=== PATIENT | male | born 1985 | race Caucasian/White ===

== ENCOUNTER 2021-06-06 04:07 | Inpatient (IN) ==
[2021-06-06] MEDS ORDERED: 0.9 % Sodium Chloride 1,000 ML IV ONE ×2 (04:17→04:25)
[2021-06-06 04:52] LABS: Basophils # 0.2 K/mcL (0.0-0.2); Basophils % 1.1 %; Hematocrit 46.4 % (37.5-50.1); Hemoglobin 13.9 g/dL (12.9-16.9); Immature Granulocytes % 3.6 % (0-4); Lymphocytes % 12.9 %; Mean Corpuscular Hemoglobin 32.2 pg (28.0-33.3); Mean Corpuscular Volume 107.4 fL (83.0-100.0); Mean Platelet Volume 9.2 fL (9.4-12.4); Monocytes # 1.4 K/mcL (0.0-1.3); Neutrophils # 17.4 K/mcL (1.6-8.9); Platelet Count 488 K/mcL (140-400); Red Blood Count 4.32 M/mcL (4.19-5.50); Red Cell Distribution Width 12.2 % (11.5-14.5); Segmented Neutrophils % 76.4 %; White Blood Count 22.8 K/mcL (4.3-11.1)
[2021-06-06 04:58] LABS: VBG HCO3 4 mEq/L (21-27); VBG PCO2 17 mmHg (41-51); VBG PH 6.93 pH Units (7.32-7.42); VBG PO2 91 mmHg (25-50)
[2021-06-06 05:42] LABS: Alanine Aminotransferase 29 Units/L (7-52); Albumin 3.6 g/dL (3.5-5.7); Alkaline Phosphatase 200 Units/L (34-104); Aspartate Amino Transferase 19 Units/L (13-39); BUN/Creatinine Ratio 29 (6-26); Bilirubin,Total 0.3 mg/dL (0.3-1.0); Blood Urea Nitrogen 54 mg/dL (6-20); Calcium 8.4 mg/dL (8.6-10.3); Carbon Dioxide < 4 mEq/L (23-29); Chloride 72 mEq/L (98-107); Globulin 3.6 g/dL (2.4-3.5); Glucose 1298 mg/dL (70-105); Lipase 74 Units/L (11-82); Osmolality,Calculated 321 (280-300); Sodium 115 mEq/L (136-145); Total Protein 7.2 g/dL (6.4-8.9); eGFR For African Americans 50 (> 60); eGFR For Non-African Americans 41 (> 60)
[2021-06-06] MEDS ORDERED: Insulin Human Regular 10 UNIT in 0.9 % Sodium Chloride 10 ML IV ONE (05:45)
[2021-06-06] MEDS ORDERED: Calcium Gluconate 1,000 MG/10 ML VIAL IVPB ONE (05:47)
[2021-06-06] MEDS ORDERED: Calcium Gluconate 1gm/50mL 1 GM/50 ML BAG IVPB ONE (06:00)
[2021-06-06 06:05] LABS: Bilirubin,Urine Negative (Negative); Blood,Urine Negative (Negative); Clarity,Urine Clear (Clear); Color,Urine Light-Yellow (Yellow); Glucose,Urine (UA) >=1000 mg/dL (Normal); Ketones,Urine 60 mg/dL (Negative); Leukocyte Esterase,Urine Negative (Negative); Mucus,Urine Few per lpf (None-Few); Nitrite,Urine Negative (Negative); PH,Urine 5.5 pH Units (5.0-8.0); Protein,Urine 30 mg/dL (Neg-Trace); RBC,Urine 0-3 per hpf (0-3); Specific Gravity,Urine 1.022 (1.010-1.025); Squamous Epithelial Cell,Urine Few per hpf (None-Few); Urobilinogen,Urine Normal (Normal)
[2021-06-06 06:06] LABS: Influenza A PCR Negative (Negative); Influenza B PCR Negative (Negative); Resp. Syncytial Virus PCR Negative (Negative); SARS-CoV-2 by PCR (In House) Negative (Negative)
[2021-06-06 06:21] LABS: Amphetamine Screen,Urine Negative ng/mL (Cutoff=1000); Barbiturate Screen,Urine Negative ng/mL (Cutoff=200)
[2021-06-06 06:22] LABS: Benzodiazepines Screen,Urine Negative ng/mL (Cutoff=300); Cannabinoid Screen,Urine Negative ng/mL (Cutoff = 50); Cocaine Screen,Urine Negative ng/mL (Cutoff= 300); Opiate Screen,Urine Negative ng/mL (Cutoff=300); Phencyclidine Screen,Urine Negative ng/mL (Cutoff=25)
[2021-06-06] MEDS: 0.9 % Sodium Chloride 1,000 ML IVC SCH ×3 (06:53→10:48)
[2021-06-06] MEDS ORDERED: Vancomycin 1,500 MG/265 ML IV.SOLN IVPB ONE (08:04)
[2021-06-06 09:08] LABS: Albumin 3.5 g/dL (3.5-5.7); Albumin/Globulin Ratio 1.1 (1.1-2.2); Bilirubin,Total 0.3 mg/dL (0.3-1.0); Calcium 8.1 mg/dL (8.6-10.3); Globulin 3.3 g/dL (2.4-3.5); Potassium 5.9 mEq/L (3.5-5.1); Total Protein 6.8 g/dL (6.4-8.9)
[2021-06-06] MEDS ORDERED: Insulin Regular, Human 100 UNIT/ML IV PRN ×2 (09:27)
[2021-06-06] MEDS ORDERED: Ondansetron 4 MG/2 ML VIAL IVP PRN (09:27)
[2021-06-06] MEDS ORDERED: D5% in 0.45% NACL 1,000 ML IVC PRN (09:27)
[2021-06-06] MEDS ORDERED: Naloxone 0.4 MG/ML INJ IVP PRN (09:27)
[2021-06-06] MEDS ORDERED: *HR* Dextrose 50 % in Water (Syg) 50 ML SYRINGE IVP PRN (09:27)
[2021-06-06] MEDS ORDERED: Vancomycin (wt based) 1,000 MG VIAL IVPB SCH (10:00)
[2021-06-06] MEDS: SODIUM ZIRCONIUM CYCLOSILICATE 5 GM POWD.PACK PO SCH (10:44)
[2021-06-06] MEDS: levoFLOXacin 750 MG/150 ML 750 MG/150 ML BAG IVPB SCH (10:55)
[2021-06-06] MEDS: Pantoprazole 40 MG VIAL IVP SCH (10:57)
[2021-06-06] MEDS: *HR* Heparin 5,000 UNIT/ML VIAL SQ SCH ×2 (11:07→18:10)
[2021-06-06 11:29] LABS: Calcium 7.6 mg/dL (8.6-10.3); Potassium 5.6 mEq/L (3.5-5.1)
[2021-06-06] MEDS ORDERED: Perflutren Lipid Microsphere 1.3 ML in 0.9 % Sodium Chloride 8.7 ML IVP PRN (12:28)
[2021-06-06 13:13] LABS: Blood Urea Nitrogen 49 mg/dL (6-20); Calcium 7.4 mg/dL (8.6-10.3); Carbon Dioxide 10 mEq/L (23-29); Chloride 96 mEq/L (98-107); Glucose 635 mg/dL (70-105); Magnesium 2.7 mg/dL (1.6-2.6); Osmolality,Calculated 319 (280-300); Phosphorous 5.2 mg/dL (2.7-4.5); Potassium 4.8 mEq/L (3.5-5.1); Sodium 133 mEq/L (136-145)
[2021-06-06 14:02] LABS: BUN/Creatinine Ratio 32 (6-26); eGFR For African Americans > 60 (> 60); eGFR For Non-African Americans 52 (> 60)
[2021-06-06] MEDS: 0.45 % Sodium Chloride w/KCl 20 MEQ/1,000 ML MLS IVC SCH ×6 (15:26→23:07)
[2021-06-06 15:30] LABS: VBG HCO3 13 mEq/L (21-27); VBG Ionized Calcium 1.02 mmol/L (1.15-1.35); VBG PCO2 28 mmHg (41-51); VBG PH 7.26 pH Units (7.32-7.42); VBG PO2 107 mmHg (25-50)
[2021-06-06 15:48] LABS: BUN/Creatinine Ratio 34 (6-26); Blood Urea Nitrogen 43 mg/dL (6-20); Calcium 7.5 mg/dL (8.6-10.3); Carbon Dioxide 12 mEq/L (23-29); Chloride 102 mEq/L (98-107); Glucose 400 mg/dL (70-105); Magnesium 2.5 mg/dL (1.6-2.6); Osmolality,Calculated 310 (280-300); Phosphorous 3.7 mg/dL (2.7-4.5); Potassium 5.1 mEq/L (3.5-5.1); Sodium 136 mEq/L (136-145); eGFR For African Americans > 60 (> 60); eGFR For Non-African Americans > 60 (> 60)
[2021-06-06] MEDS: Calcium Gluconate 1gm/50mL 1 GM/50 ML BAG IVPB SCH ×2 (17:02→17:36)
[2021-06-06 19:30] LABS: BUN/Creatinine Ratio 32 (6-26); Blood Urea Nitrogen 36 mg/dL (6-20); Calcium 8.1 mg/dL (8.6-10.3); Carbon Dioxide 15 mEq/L (23-29); Chloride 106 mEq/L (98-107); Glucose 196 mg/dL (70-105); Magnesium 2.3 mg/dL (1.6-2.6); Osmolality,Calculated 300 (280-300); Phosphorous 3.4 mg/dL (2.7-4.5); Sodium 138 mEq/L (136-145); eGFR For African Americans > 60 (> 60); eGFR For Non-African Americans > 60 (> 60)
[2021-06-06] MEDS: D5% in 0.45% NACL w KCl 20 MEQ/1,000 ML MLS IVC SCH (21:34)
[2021-06-06 23:26] LABS: BUN/Creatinine Ratio 30 (6-26); Blood Urea Nitrogen 28 mg/dL (6-20); Calcium 7.7 mg/dL (8.6-10.3); Carbon Dioxide 19 mEq/L (23-29); Chloride 108 mEq/L (98-107); Glucose 176 mg/dL (70-105); Osmolality,Calculated 296 (280-300); Potassium 4.7 mEq/L (3.5-5.1); Sodium 138 mEq/L (136-145); eGFR For African Americans > 60 (> 60); eGFR For Non-African Americans > 60 (> 60)
[2021-06-07] MEDS: D5% in 0.45% NACL w KCl 20 MEQ/1,000 ML MLS IVC SCH ×3 (01:45→14:19)
[2021-06-07 03:44] LABS: Basophils % 0.2 %; Eosinophils % 0.1 %; Hematocrit 29.7 % (37.5-50.1); Immature Granulocytes % 0.8 % (0-4); Lymphocytes % 15.4 %; Mean Corpuscular Hemoglobin 32.1 pg (28.0-33.3); Mean Platelet Volume 8.3 fL (9.4-12.4); Monocytes # 1.3 K/mcL (0.0-1.3); Neutrophils # 9.6 K/mcL (1.6-8.9); Platelet Count 250 K/mcL (140-400); Red Blood Count 3.43 M/mcL (4.19-5.50); Red Cell Distribution Width 12.3 % (11.5-14.5); Segmented Neutrophils % 73.5 %
[2021-06-07 03:45] LABS: VBG Ionized Calcium 1.14 mmol/L (1.15-1.35)
[2021-06-07 03:46] LABS: Mean Corpuscular Volume 86.6 fL (83.0-100.0)
[2021-06-07 04:02] LABS: Alanine Aminotransferase 18 Units/L (7-52); Albumin 2.7 g/dL (3.5-5.7); Alkaline Phosphatase 118 Units/L (34-104); Aspartate Amino Transferase 16 Units/L (13-39); BUN/Creatinine Ratio 23 (6-26); Bilirubin,Indirect 0.2 mg/dL (0.0-1.0); Bilirubin,Total 0.2 mg/dL (0.3-1.0); Blood Urea Nitrogen 20 mg/dL (6-20); Calcium 7.6 mg/dL (8.6-10.3); Carbon Dioxide 21 mEq/L (23-29); Chloride 108 mEq/L (98-107); Globulin 2.6 g/dL (2.4-3.5); Glucose 116 mg/dL (70-105); Magnesium 1.9 mg/dL (1.6-2.6); Osmolality,Calculated 292 (280-300); Phosphorous 1.1 mg/dL (2.7-4.5); Potassium 4.1 mEq/L (3.5-5.1); Sodium 139 mEq/L (136-145); Total Protein 5.3 g/dL (6.4-8.9); eGFR For African Americans > 60 (> 60); eGFR For Non-African Americans > 60 (> 60)
[2021-06-07] MEDS: 0.45 % Sodium Chloride w/KCl 20 MEQ/1,000 ML MLS IVC SCH ×4 (04:19→14:19)
[2021-06-07] MEDS ORDERED: Dextrose Gel 15 GM/37.5 ML TUBE PO PRN ×4 (05:29→09:35)
[2021-06-07] MEDS ORDERED: D5% in Water 1,000 ML IVC PRN (05:29)
[2021-06-07] MEDS: *HR* Heparin 5,000 UNIT/ML VIAL SQ SCH ×2 (05:42→17:12)
[2021-06-07] MEDS ORDERED: Insulin DETEMIR 100 UNIT/ML X5UNITS SUBQ SCH ×2 (05:45→21:00)
[2021-06-07] MEDS ORDERED: Insulin LISPRO 300 UNITS/3 ML VIAL SUBQ SCH (07:30)
[2021-06-07] MEDS: levoFLOXacin 750 MG/150 ML 750 MG/150 ML BAG IVPB SCH (08:17)
[2021-06-07] MEDS: Pantoprazole 40 MG VIAL IVP SCH (08:17)
[2021-06-07 08:45] LABS: BUN/Creatinine Ratio 20 (6-26); Blood Urea Nitrogen 16 mg/dL (6-20); Calcium 7.6 mg/dL (8.6-10.3); Carbon Dioxide 20 mEq/L (23-29); Chloride 105 mEq/L (98-107); Glucose 248 mg/dL (70-105); Osmolality,Calculated 289 (280-300); Phosphorous 1.8 mg/dL (2.7-4.5); Potassium 4.4 mEq/L (3.5-5.1); Sodium 135 mEq/L (136-145); eGFR For African Americans > 60 (> 60); eGFR For Non-African Americans > 60 (> 60)
[2021-06-07] MEDS ORDERED: Ondansetron 4 MG/2 ML VIAL IVP PRN (09:35)
[2021-06-07] MEDS ORDERED: *HR* Dextrose 50 % in Water (Syg) 50 ML SYRINGE IVP PRN (09:35)
[2021-06-07] MEDS ORDERED: Naloxone 0.4 MG/ML INJ IVP PRN (09:35)
[2021-06-07] MEDS: Ringers Solution, Lactated 1,000 ML IVC SCH ×2 (09:45→21:29)
[2021-06-07] MEDS: Insulin LISPRO 300 UNITS/3 ML VIAL SUBQ SCH ×2 (11:44→17:12)
[2021-06-07] MEDS: 0.9 % Sodium Chloride 1,000 ML IVC SCH (14:18)
[2021-06-07] MEDS: SODIUM ZIRCONIUM CYCLOSILICATE 5 GM POWD.PACK PO SCH (14:18)
[2021-06-08] MEDS: *HR* Heparin 5,000 UNIT/ML VIAL SQ SCH ×2 (05:24→18:02)
[2021-06-08 06:00] LABS: VBG Ionized Calcium 1.11 mmol/L (1.15-1.35)
[2021-06-08 06:04] LABS: Basophils % 0.3 %; Eosinophils % 0.1 %; Hematocrit 30.6 % (37.5-50.1); Hemoglobin 10.5 g/dL (12.9-16.9); Immature Granulocytes % 0.1 % (0-4); Lymphocytes # 2.2 K/mcL (0.6-4.6); Lymphocytes % 31.2 %; Mean Corpuscular HGB Conc 34.3 g/dL (31.6-35.5); Mean Corpuscular Hemoglobin 31.6 pg (28.0-33.3); Mean Corpuscular Volume 92.2 fL (83.0-100.0); Mean Platelet Volume 8.4 fL (9.4-12.4); Monocytes # 0.5 K/mcL (0.0-1.3); Monocytes % 6.9 %; Neutrophils # 4.3 K/mcL (1.6-8.9); Platelet Count 171 K/mcL (140-400); Red Blood Count 3.32 M/mcL (4.19-5.50); Red Cell Distribution Width 12.9 % (11.5-14.5); Segmented Neutrophils % 61.4 %
[2021-06-08 06:24] LABS: Alanine Aminotransferase 21 Units/L (7-52); Albumin 2.7 g/dL (3.5-5.7); Albumin/Globulin Ratio 1.1 (1.1-2.2); Alkaline Phosphatase 122 Units/L (34-104); Aspartate Amino Transferase 35 Units/L (13-39); BUN/Creatinine Ratio 11 (6-26); Bilirubin,Indirect 0.2 mg/dL (0.0-1.0); Bilirubin,Total 0.2 mg/dL (0.3-1.0); Blood Urea Nitrogen 8 mg/dL (6-20); Calcium 7.8 mg/dL (8.6-10.3); Carbon Dioxide 26 mEq/L (23-29); Chloride 105 mEq/L (98-107); Globulin 2.4 g/dL (2.4-3.5); Glucose 253 mg/dL (70-105); Magnesium 2.1 mg/dL (1.6-2.6); Osmolality,Calculated 289 (280-300); Phosphorous 1.8 mg/dL (2.7-4.5); Potassium 3.9 mEq/L (3.5-5.1); Sodium 136 mEq/L (136-145); Total Protein 5.1 g/dL (6.4-8.9); eGFR For African Americans > 60 (> 60); eGFR For Non-African Americans > 60 (> 60)
[2021-06-08] MEDS: Insulin LISPRO 300 UNITS/3 ML VIAL SUBQ SCH ×3 (08:57→17:58)
[2021-06-08] MEDS: levoFLOXacin 750 MG TABLET PO SCH (08:58)
[2021-06-08] MEDS: Pantoprazole 40 MG VIAL IVP SCH (08:58)
[2021-06-08] MEDS ORDERED: levoFLOXacin 750 MG/150 ML 750 MG/150 ML BAG IVPB SCH (09:00)
[2021-06-08] MEDS ORDERED: Insulin DETEMIR 100 UNIT/ML X5UNITS SUBQ SCH (21:00)
[2021-06-09] MEDS: *HR* Heparin 5,000 UNIT/ML VIAL SQ SCH (04:57)
[2021-06-09 05:42] LABS: Basophils % 0.3 %; Eosinophils % 0.3 %; Hematocrit 32.7 % (37.5-50.1); Hemoglobin 11.3 g/dL (12.9-16.9); Immature Granulocytes % 0.5 % (0-4); Lymphocytes # 2.4 K/mcL (0.6-4.6); Lymphocytes % 38.4 %; Mean Corpuscular HGB Conc 34.6 g/dL (31.6-35.5); Mean Corpuscular Hemoglobin 32.2 pg (28.0-33.3); Mean Corpuscular Volume 93.2 fL (83.0-100.0); Mean Platelet Volume 8.6 fL (9.4-12.4); Monocytes # 0.4 K/mcL (0.0-1.3); Monocytes % 6.3 %; Neutrophils # 3.4 K/mcL (1.6-8.9); Platelet Count 151 K/mcL (140-400); Red Blood Count 3.51 M/mcL (4.19-5.50); Red Cell Distribution Width 12.6 % (11.5-14.5); Segmented Neutrophils % 54.2 %; White Blood Count 6.3 K/mcL (4.3-11.1)
[2021-06-09 05:45] LABS: VBG Ionized Calcium 1.15 mmol/L (1.15-1.35)
[2021-06-09 06:14] LABS: Alanine Aminotransferase 29 Units/L (7-52); Albumin/Globulin Ratio 1.1 (1.1-2.2); Alkaline Phosphatase 137 Units/L (34-104); Aspartate Amino Transferase 38 Units/L (13-39); BUN/Creatinine Ratio 18 (6-26); Bilirubin,Direct 0.1 mg/dL (0.0-0.2); Bilirubin,Indirect 0.2 mg/dL (0.0-1.0); Bilirubin,Total 0.3 mg/dL (0.3-1.0); Blood Urea Nitrogen 15 mg/dL (6-20); Calcium 8.6 mg/dL (8.6-10.3); Carbon Dioxide 26 mEq/L (23-29); Chloride 102 mEq/L (98-107); Globulin 2.7 g/dL (2.4-3.5); Glucose 262 mg/dL (70-105); Osmolality,Calculated 292 (280-300); Phosphorous 2.8 mg/dL (2.7-4.5); Potassium 4.3 mEq/L (3.5-5.1); Sodium 136 mEq/L (136-145); Total Protein 5.7 g/dL (6.4-8.9); eGFR For African Americans > 60 (> 60); eGFR For Non-African Americans > 60 (> 60)
[2021-06-09 06:44] LABS: Estimated Average Glucose 266 mg/dl; Hemoglobin A1C 10.9 %
[2021-06-09] MEDS: Insulin LISPRO 300 UNITS/3 ML VIAL SUBQ SCH ×2 (08:33→14:42)
[2021-06-09] MEDS: Pantoprazole 40 MG VIAL IVP SCH (08:33)
[2021-06-09] MEDS: levoFLOXacin 750 MG TABLET PO SCH (08:33)
[2021-06-09] MEDS ORDERED: FLU Vac QV 21-22 (6Month+)/PF 0.5 ML SYRINGE IM ONE (11:01)
[2021-06-09] MEDS ORDERED: Moderna Covid-19 Vaccine 100MCG/0.5mL IM ONE (11:37)
[2021-06-09 12:04] VITALS: BP 157/97; PULSE 63; TEMP 98; O2SAT 99
== END 2021-06-09 15:20 | disposition home or self-care (01) | DRG 720 ==
LOC: EMEROOARM 04:07 → ICNU 04:07 → SUATTDRO 10:00 → ICNU 10:05 → 3BNU 06-07 14:14
PROVIDERS: ADMIT Pediatrics; ATTEND Family Medicine

== ENCOUNTER 2021-07-03 13:56 | Inpatient (IN) ==
[2021-07-03] MEDS ORDERED: 0.9 % Sodium Chloride 1,000 ML IVC SCH (14:30)
[2021-07-03] MEDS: 0.9 % Sodium Chloride 1,000 ML IVC SCH ×4 (14:42→23:00)
[2021-07-03 14:46] LABS: Mean Platelet Volume 9.9 fL (9.4-12.4)
[2021-07-03 14:48] LABS: Hematocrit 45.7 % (37.5-50.1); Mean Corpuscular HGB Conc 32.8 g/dL (31.6-35.5); Mean Corpuscular Hemoglobin 31.6 pg (28.0-33.3); Mean Corpuscular Volume 96.2 fL (83.0-100.0); Platelet Count 594 K/mcL (140-400); Red Blood Count 4.75 M/mcL (4.19-5.50); Red Cell Distribution Width 12.8 % (11.5-14.5)
[2021-07-03] MEDS ORDERED: *HR* Midazolam HCl 2 MG/2 ML VIAL IVP ONE ×2 (14:50→15:27)
[2021-07-03] MEDS ORDERED: *HR* Midazolam HCl 5 MG/5 ML VIAL IVP ONE (14:51)
[2021-07-03 14:52] LABS: VBG HCO3 3 mEq/L (21-27); VBG PCO2 21 mmHg (41-51); VBG PH 6.69 pH Units (7.32-7.42); VBG PO2 78 mmHg (25-50)
[2021-07-03 15:09] LABS: White Blood Count 38.1 K/mcL (4.3-11.1)
[2021-07-03 15:13] LABS: Platelet Estimate Increased (Normal)
[2021-07-03 15:15] LABS: Monocytes # 3.4 K/mcL (0.0-1.3); Neutrophils # 29.3 K/mcL (1.6-8.9)
[2021-07-03] MEDS ORDERED: Dexmedetomidine HCl 400 MCG/100 ML MLS IVC SCH (15:30)
[2021-07-03 15:58] LABS: Estimated Average Glucose 263 mg/dl; Hemoglobin A1C 10.8 %
[2021-07-03 16:32] LABS: Bacteria,Urine Few per hpf (None-Few); Bilirubin,Urine Negative (Negative); Blood,Urine Moderate (Negative); Clarity,Urine Clear (Clear); Color,Urine Colorless (Yellow); Glucose,Urine (UA) >=1000 mg/dL (Normal); Ketones,Urine 60 mg/dL (Negative); Leukocyte Esterase,Urine Negative (Negative); Mucus,Urine Few per lpf (None-Few); Nitrite,Urine Negative (Negative); PH,Urine 5.5 pH Units (5.0-8.0); Protein,Urine 30 mg/dL (Neg-Trace); RBC,Urine 0-3 per hpf (0-3); Urobilinogen,Urine Normal (Normal); WBC,Urine 0-3 per hpf (0-3)
[2021-07-03 16:37] LABS: Amphetamine Screen,Urine Negative ng/mL (Cutoff=1000); Barbiturate Screen,Urine Negative ng/mL (Cutoff=200); Benzodiazepines Screen,Urine Negative ng/mL (Cutoff=200); Cannabinoid Screen,Urine Negative ng/mL (Cutoff = 50); Cocaine Screen,Urine Negative ng/mL (Cutoff= 300); Opiate Screen,Urine Negative ng/mL (Cutoff=300); Phencyclidine Screen,Urine Negative ng/mL (Cutoff=25)
[2021-07-03] MEDS ORDERED: Insulin Human Regular 10 UNIT in 0.9 % Sodium Chloride 10 ML IV ONE (16:49)
[2021-07-03 16:52] LABS: Alanine Aminotransferase 13 Units/L (7-52); Albumin 3.2 g/dL (3.5-5.7); Albumin/Globulin Ratio 1.2 (1.1-2.2); Alkaline Phosphatase 184 Units/L (34-104); Aspartate Amino Transferase 18 Units/L (13-39); BUN/Creatinine Ratio 28 (6-26); Bilirubin,Total 0.3 mg/dL (0.3-1.0); Blood Urea Nitrogen 54 mg/dL (6-20); Calcium 10.6 mg/dL (8.6-10.3); Carbon Dioxide < 4 mEq/L (23-29); Chloride 69 mEq/L (98-107); Globulin 2.6 g/dL (2.4-3.5); Magnesium 2.9 mg/dL (1.6-2.6); Potassium 7.9 mEq/L (3.5-5.1); Sodium 110 mEq/L (136-145); Total Protein 5.8 g/dL (6.4-8.9); eGFR For African Americans 48 (> 60); eGFR For Non-African Americans 40 (> 60)
[2021-07-03] MEDS ORDERED: *HR* Dextrose 50 % in Water (Syg) 50 ML SYRINGE IVP PRN ×3 (16:54→17:45)
[2021-07-03] MEDS ORDERED: Sodium Bicarbonate 150 MEQ in Water for inj. (sterile) 1,000 ML IVC SCH ×2 (16:56→19:15)
[2021-07-03 17:03] LABS: Osmolality,Calculated 305 (280-300)
[2021-07-03 17:04] LABS: Glucose 1186 mg/dL (70-105)
[2021-07-03] MEDS ORDERED: D5% in 0.45% NACL 1,000 ML IVC PRN (17:45)
[2021-07-03] MEDS ORDERED: Insulin Regular, Human 100 UNIT/ML IV PRN (17:45)
[2021-07-03] MEDS ORDERED: Naloxone 0.4 MG/ML INJ IVP PRN (17:45)
[2021-07-03 17:49] LABS: Adenovirus Not Detected (Not Detect); Bordetella Pertussis Not Detected (Not Detect); Chlamydophila pneumoniae Not Detected (Not Detect); Coronavirus 229E Not Detected (Not Detect); Coronavirus HKU1 Not Detected (Not Detect); Coronavirus NL63 Not Detected (Not Detect); Coronavirus OC43 Not Detected (Not Detect); Human Metapneumovirus Not Detected (Not Detect); Human Rhinovirus/Enterovirus Not Detected (Not Detect); Influenza A Subtype 2009 H1 Not Detected (Not Detect); Influenza B Not Detected (Not Detect); Mycoplasma pneumoniae Not Detected (Not Detect); Parainfluenza Virus 1 Not Detected (Not Detect); Parainfluenza Virus 2 Not Detected (Not Detect); Parainfluenza Virus 3 Not Detected (Not Detect); Parainfluenza Virus 4 Not Detected (Not Detect); Respiratory Syncytial Virus Not Detected (Not Detect); SARS-CoV-2 Not Detected (Not Detect)
[2021-07-03] MEDS ORDERED: Vancomycin (wt based) 1,000 MG VIAL IVPB SCH (18:00)
[2021-07-03 18:48] LABS: BUN/Creatinine Ratio 30 (6-26); Blood Urea Nitrogen 52 mg/dL (6-20); Calcium 8.9 mg/dL (8.6-10.3); Carbon Dioxide < 4 mEq/L (23-29); Chloride 80 mEq/L (98-107); Magnesium 2.4 mg/dL (1.6-2.6); Osmolality,Calculated 311 (280-300); Phosphorous 10.2 mg/dL (2.7-4.5); Potassium 7.2 mEq/L (3.5-5.1); Sodium 118 mEq/L (136-145); eGFR For African Americans 55 (> 60); eGFR For Non-African Americans 45 (> 60)
[2021-07-03] MEDS ORDERED: Calcium Chloride 1,000 MG in 0.9 % Sodium Chloride 100 ML IVPB ONE (18:56)
[2021-07-03 19:40] LABS: Glucose 1007 mg/dL (70-105)
[2021-07-03] MEDS: levoFLOXacin 750 MG/150 ML 750 MG/150 ML BAG IVPB SCH (19:57)
[2021-07-03] MEDS: *HR* Heparin 5,000 UNIT/ML VIAL SQ SCH (20:10)
[2021-07-03 20:18] LABS: VBG Ionized Calcium 1.22 mmol/L (1.15-1.35)
[2021-07-03 21:31] LABS: BUN/Creatinine Ratio 31 (6-26); Blood Urea Nitrogen 49 mg/dL (6-20); Calcium 8.9 mg/dL (8.6-10.3); Carbon Dioxide 4 mEq/L (23-29); Chloride 89 mEq/L (98-107); Glucose 658 mg/dL (70-105); Magnesium 2.4 mg/dL (1.6-2.6); Osmolality,Calculated 308 (280-300); Phosphorous 6.7 mg/dL (2.7-4.5); Potassium 5.2 mEq/L (3.5-5.1); Sodium 127 mEq/L (136-145); Troponin I < 0.03 ng/mL (< 0.04); eGFR For African Americans > 60 (> 60); eGFR For Non-African Americans 50 (> 60)
[2021-07-04 00:45] LABS: Phosphorous 3.3 mg/dL (2.7-4.5)
[2021-07-04 01:57] LABS: BUN/Creatinine Ratio 33 (6-26); Blood Urea Nitrogen 42 mg/dL (6-20); Calcium 8.6 mg/dL (8.6-10.3); Carbon Dioxide 8 mEq/L (23-29); Chloride 95 mEq/L (98-107); Glucose 418 mg/dL (70-105); Osmolality,Calculated 300 (280-300); Potassium 5.3 mEq/L (3.5-5.1); Sodium 131 mEq/L (136-145); eGFR For African Americans > 60 (> 60); eGFR For Non-African Americans > 60 (> 60)
[2021-07-04] MEDS ORDERED: Sodium Bicarbonate 150 MEQ in Water for inj. (sterile) 1,000 ML IVC SCH (02:03)
[2021-07-04] MEDS: 0.9 % Sodium Chloride 1,000 ML IVC SCH ×3 (02:37→05:59)
[2021-07-04 04:11] LABS: VBG HCO3 18 mEq/L (21-27); VBG Ionized Calcium 1.21 mmol/L (1.15-1.35); VBG PCO2 30 mmHg (41-51); VBG PH 7.38 pH Units (7.32-7.42); VBG PO2 78 mmHg (25-50)
[2021-07-04] MEDS: Dexmedetomidine HCl 400 MCG/100 ML MLS IVC SCH ×2 (04:15→18:21)
[2021-07-04 04:25] LABS: Alanine Aminotransferase 11 Units/L (7-52); Albumin 2.7 g/dL (3.5-5.7); Albumin/Globulin Ratio 1.2 (1.1-2.2); Alkaline Phosphatase 116 Units/L (34-104); Aspartate Amino Transferase 14 Units/L (13-39); BUN/Creatinine Ratio 31 (6-26); Bilirubin,Indirect 0.3 mg/dL (0.0-1.0); Bilirubin,Total 0.3 mg/dL (0.3-1.0); Blood Urea Nitrogen 37 mg/dL (6-20); Calcium 8.2 mg/dL (8.6-10.3); Carbon Dioxide 18 mEq/L (23-29); Chloride 100 mEq/L (98-107); Globulin 2.2 g/dL (2.4-3.5); Glucose 260 mg/dL (70-105); Magnesium 1.8 mg/dL (1.6-2.6); Osmolality,Calculated 296 (280-300); Phosphorous 1.4 mg/dL (2.7-4.5); Potassium 4.1 mEq/L (3.5-5.1); Sodium 134 mEq/L (136-145); Total Protein 4.9 g/dL (6.4-8.9); eGFR For African Americans > 60 (> 60); eGFR For Non-African Americans > 60 (> 60)
[2021-07-04] MEDS: D5% in 0.45% NACL w KCl 20 MEQ/1,000 ML MLS IVC SCH ×2 (05:07→09:12)
[2021-07-04] MEDS: *HR* Heparin 5,000 UNIT/ML VIAL SQ SCH ×2 (06:20→18:18)
[2021-07-04 08:40] LABS: White Blood Count 14.1 K/mcL (4.3-11.1)
[2021-07-04 08:41] LABS: Basophils % 0.3 %; Hematocrit 27.4 % (37.5-50.1); Lymphocytes % 14.2 %; Mean Corpuscular HGB Conc 36.9 g/dL (31.6-35.5); Mean Corpuscular Hemoglobin 30.6 pg (28.0-33.3); Mean Platelet Volume 8.8 fL (9.4-12.4); Monocytes # 1.2 K/mcL (0.0-1.3); Monocytes % 8.7 %; Red Cell Distribution Width 12.9 % (11.5-14.5); Segmented Neutrophils % 74.8 %
[2021-07-04 08:44] LABS: Neutrophils # 10.6 K/mcL (1.6-8.9)
[2021-07-04 08:47] LABS: Hemoglobin 10.1 g/dL (12.9-16.9); Platelet Count 215 K/mcL (140-400)
[2021-07-04 09:24] LABS: VBG HCO3 27 mEq/L (21-27); VBG Ionized Calcium 1.19 mmol/L (1.15-1.35); VBG PCO2 42 mmHg (41-51); VBG PH 7.41 pH Units (7.32-7.42); VBG PO2 83 mmHg (25-50)
[2021-07-04] MEDS: levoFLOXacin 750 MG/150 ML 750 MG/150 ML BAG IVPB SCH (09:30)
[2021-07-04 09:56] LABS: BUN/Creatinine Ratio 29 (6-26); Blood Urea Nitrogen 31 mg/dL (6-20); Calcium 7.8 mg/dL (8.6-10.3); Carbon Dioxide 27 mEq/L (23-29); Chloride 101 mEq/L (98-107); Creatine Kinase 357 Units/L (30-223); Glucose 185 mg/dL (70-105); Magnesium 1.7 mg/dL (1.6-2.6); Osmolality,Calculated 291 (280-300); Phosphorous 1.3 mg/dL (2.7-4.5); Potassium 4.3 mEq/L (3.5-5.1); Sodium 135 mEq/L (136-145); eGFR For African Americans > 60 (> 60); eGFR For Non-African Americans > 60 (> 60)
[2021-07-04] MEDS ORDERED: Perflutren Lipid Microsphere 1.3 ML in 0.9 % Sodium Chloride 8.7 ML IVP PRN (10:08)
[2021-07-04] MEDS ORDERED: D5% in Water 1,000 ML IVC PRN (11:33)
[2021-07-04] MEDS ORDERED: Dextrose Gel 15 GM/37.5 ML TUBE PO PRN ×2 (11:33)
[2021-07-04] MEDS ORDERED: *HR* Dextrose 50 % in Water (Syg) 50 ML SYRINGE IVP PRN (11:33)
[2021-07-04] MEDS: Ringers Solution, Lactated 1,000 ML IVC SCH ×2 (13:09→22:11)
[2021-07-04] MEDS: Insulin DETEMIR 100 UNIT/ML X5UNITS SUBQ SCH ×2 (13:11→20:22)
[2021-07-04 13:45] LABS: VBG Ionized Calcium 1.11 mmol/L (1.15-1.35)
[2021-07-04 14:43] LABS: Estimated Average Glucose 263 mg/dl; Hemoglobin A1C 10.8 %
[2021-07-04 14:49] LABS: BUN/Creatinine Ratio 28 (6-26); Blood Urea Nitrogen 25 mg/dL (6-20); Calcium 7.5 mg/dL (8.6-10.3); Carbon Dioxide 28 mEq/L (23-29); Chloride 101 mEq/L (98-107); Glucose 148 mg/dL (70-105); Osmolality,Calculated 287 (280-300); Sodium 135 mEq/L (136-145); eGFR For African Americans > 60 (> 60); eGFR For Non-African Americans > 60 (> 60)
[2021-07-04] MEDS: Insulin LISPRO 300 UNITS/3 ML VIAL SUBQ SCH ×2 (14:56→18:16)
[2021-07-04 17:03] LABS: VBG Ionized Calcium 1.12 mmol/L (1.15-1.35)
[2021-07-04 17:23] LABS: BUN/Creatinine Ratio 26 (6-26); Blood Urea Nitrogen 23 mg/dL (6-20); Calcium 7.5 mg/dL (8.6-10.3); Carbon Dioxide 23 mEq/L (23-29); Chloride 100 mEq/L (98-107); Glucose 215 mg/dL (70-105); Osmolality,Calculated 288 (280-300); Potassium 3.7 mEq/L (3.5-5.1); Sodium 134 mEq/L (136-145); eGFR For African Americans > 60 (> 60); eGFR For Non-African Americans > 60 (> 60)
[2021-07-04] MEDS ORDERED: Insulin LISPRO 300 UNITS/3 ML VIAL SUBQ SCH (21:00)
[2021-07-04 21:12] LABS: VBG Ionized Calcium 1.09 mmol/L (1.15-1.35)
[2021-07-04 21:33] LABS: BUN/Creatinine Ratio 23 (6-26); Blood Urea Nitrogen 20 mg/dL (6-20); Calcium 7.4 mg/dL (8.6-10.3); Carbon Dioxide 25 mEq/L (23-29); Chloride 98 mEq/L (98-107); Glucose 149 mg/dL (70-105); Magnesium 1.8 mg/dL (1.6-2.6); Osmolality,Calculated 277 (280-300); Phosphorous 2.1 mg/dL (2.7-4.5); Potassium 3.6 mEq/L (3.5-5.1); Sodium 131 mEq/L (136-145); eGFR For African Americans > 60 (> 60); eGFR For Non-African Americans > 60 (> 60)
[2021-07-05] MEDS ORDERED: *HR* Dextrose 50 % in Water (Syg) 50 ML SYRINGE IVP PRN ×3 (00:36)
[2021-07-05] MEDS ORDERED: D5% in Water 1,000 ML IVC PRN (00:36)
[2021-07-05] MEDS ORDERED: Dextrose Gel 15 GM/37.5 ML TUBE PO PRN ×2 (00:36)
[2021-07-05] MEDS ORDERED: Perflutren Lipid Microsphere 1.3 ML in 0.9 % Sodium Chloride 8.7 ML IVP PRN (00:36)
[2021-07-05] MEDS ORDERED: Ringers Solution, Lactated 1,000 ML IVC SCH (00:36)
[2021-07-05] MEDS ORDERED: Naloxone 0.4 MG/ML INJ IVP PRN (00:36)
[2021-07-05 03:37] LABS: Basophils % 0.2 %; Eosinophils % 0.1 %; Hematocrit 25.8 % (37.5-50.1); Hemoglobin 9.2 g/dL (12.9-16.9); Immature Granulocytes % 0.5 % (0-4); Lymphocytes # 2.4 K/mcL (0.6-4.6); Lymphocytes % 27.1 %; Mean Corpuscular HGB Conc 35.7 g/dL (31.6-35.5); Mean Corpuscular Hemoglobin 30.9 pg (28.0-33.3); Mean Corpuscular Volume 86.6 fL (83.0-100.0); Mean Platelet Volume 8.8 fL (9.4-12.4); Monocytes # 0.4 K/mcL (0.0-1.3); Monocytes % 4.2 %; Nucleated Red Blood Cells 0.2 /100 WBC (0); Platelet Count 142 K/mcL (140-400); Red Blood Count 2.98 M/mcL (4.19-5.50); Red Cell Distribution Width 13.7 % (11.5-14.5); Segmented Neutrophils % 67.9 %; White Blood Count 8.8 K/mcL (4.3-11.1)
[2021-07-05 04:00] LABS: Alanine Aminotransferase 9 Units/L (7-52); Albumin 2.2 g/dL (3.5-5.7); Albumin/Globulin Ratio 1.1 (1.1-2.2); Alkaline Phosphatase 85 Units/L (34-104); Aspartate Amino Transferase 15 Units/L (13-39); BUN/Creatinine Ratio 21 (6-26); Bilirubin,Indirect 0.2 mg/dL (0.0-1.0); Bilirubin,Total 0.2 mg/dL (0.3-1.0); Blood Urea Nitrogen 16 mg/dL (6-20); Calcium 7.3 mg/dL (8.6-10.3); Carbon Dioxide 28 mEq/L (23-29); Chloride 103 mEq/L (98-107); Glucose 71 mg/dL (70-105); Magnesium 1.9 mg/dL (1.6-2.6); Osmolality,Calculated 282 (280-300); Phosphorous 1.8 mg/dL (2.7-4.5); Potassium 3.4 mEq/L (3.5-5.1); Sodium 136 mEq/L (136-145); Total Protein 4.2 g/dL (6.4-8.9); eGFR For African Americans > 60 (> 60); eGFR For Non-African Americans > 60 (> 60)
[2021-07-05] MEDS: *HR* Heparin 5,000 UNIT/ML VIAL SQ SCH ×2 (05:14→17:31)
[2021-07-05] MEDS: Dexmedetomidine HCl 400 MCG/100 ML MLS IVC SCH (05:38)
[2021-07-05] MEDS: Insulin DETEMIR 100 UNIT/ML X5UNITS SUBQ SCH ×2 (08:40→20:52)
[2021-07-05] MEDS: Insulin LISPRO 300 UNITS/3 ML VIAL SUBQ SCH ×3 (08:40→16:39)
[2021-07-05] MEDS ORDERED: levoFLOXacin 750 MG/150 ML 750 MG/150 ML BAG IVPB SCH (09:00)
[2021-07-05] MEDS ORDERED: Insulin LISPRO 300 UNITS/3 ML VIAL SUBQ SCH (21:00)
[2021-07-06 04:01] LABS: Basophils % 0.3 %; Eosinophils % 0.3 %; Hematocrit 30.4 % (37.5-50.1); Hemoglobin 10.5 g/dL (12.9-16.9); Immature Granulocytes % 0.4 % (0-4); Lymphocytes # 2.2 K/mcL (0.6-4.6); Mean Corpuscular HGB Conc 34.5 g/dL (31.6-35.5); Mean Corpuscular Hemoglobin 30.9 pg (28.0-33.3); Mean Corpuscular Volume 89.4 fL (83.0-100.0); Monocytes # 0.4 K/mcL (0.0-1.3); Monocytes % 5.5 %; Neutrophils # 4.1 K/mcL (1.6-8.9); Platelet Count 122 K/mcL (140-400); Red Cell Distribution Width 13.3 % (11.5-14.5); Segmented Neutrophils % 60.5 %; White Blood Count 6.8 K/mcL (4.3-11.1)
[2021-07-06] MEDS: Dexmedetomidine HCl 400 MCG/100 ML MLS IVC SCH (04:53)
[2021-07-06 05:00] LABS: Alanine Aminotransferase 18 Units/L (7-52); Albumin 2.6 g/dL (3.5-5.7); Albumin/Globulin Ratio 1.1 (1.1-2.2); Alkaline Phosphatase 130 Units/L (34-104); Aspartate Amino Transferase 39 Units/L (13-39); BUN/Creatinine Ratio 17 (6-26); Bilirubin,Indirect 0.2 mg/dL (0.0-1.0); Bilirubin,Total 0.2 mg/dL (0.3-1.0); Blood Urea Nitrogen 15 mg/dL (6-20); Calcium 7.8 mg/dL (8.6-10.3); Carbon Dioxide 28 mEq/L (23-29); Chloride 100 mEq/L (98-107); Globulin 2.4 g/dL (2.4-3.5); Glucose 384 mg/dL (70-105); Osmolality,Calculated 293 (280-300); Phosphorous 1.6 mg/dL (2.7-4.5); Potassium 4.2 mEq/L (3.5-5.1); Sodium 133 mEq/L (136-145); eGFR For African Americans > 60 (> 60); eGFR For Non-African Americans > 60 (> 60)
[2021-07-06] MEDS: *HR* Heparin 5,000 UNIT/ML VIAL SQ SCH ×2 (05:35→16:42)
[2021-07-06] MEDS ORDERED: Insulin LISPRO 300 UNITS/3 ML VIAL SUBQ SCH (07:20)
[2021-07-06] MEDS: Insulin LISPRO 300 UNITS/3 ML VIAL SUBQ SCH ×3 (07:45→16:41)
[2021-07-06] MEDS: Insulin DETEMIR 100 UNIT/ML X5UNITS SUBQ SCH ×2 (09:40→22:00)
[2021-07-06] MEDS ORDERED: *HR* LORazepam 2 MG/ML VIAL IVP ONE (11:09)
[2021-07-06] MEDS ORDERED: Ondansetron 4 MG/2 ML VIAL IVP PRN (11:21)
[2021-07-06] MEDS ORDERED: Ipratropium/Albuterol Neb 3 ML IH ONE (11:33)
[2021-07-06] MEDS: Ibuprofen 400 MG TABLET PO PRN (16:51)
[2021-07-06] MEDS ORDERED: *HR* LORazepam 0.5 MG TABLET PO ONE (21:39)
[2021-07-07] MEDS: Ibuprofen 400 MG TABLET PO PRN ×2 (02:11→15:04)
[2021-07-07] MEDS: *HR* Heparin 5,000 UNIT/ML VIAL SQ SCH (05:45)
[2021-07-07 05:51] LABS: Basophils % 0.4 %; Eosinophils # 0.3 K/mcL (0.0-0.6); Eosinophils % 4.7 %; Hematocrit 30.2 % (37.5-50.1); Hemoglobin 10.4 g/dL (12.9-16.9); Immature Granulocytes % 0.6 % (0-4); Lymphocytes # 2.4 K/mcL (0.6-4.6); Lymphocytes % 34.1 %; Mean Corpuscular HGB Conc 34.4 g/dL (31.6-35.5); Mean Corpuscular Volume 89.9 fL (83.0-100.0); Mean Platelet Volume 9.2 fL (9.4-12.4); Monocytes # 0.4 K/mcL (0.0-1.3); Monocytes % 5.1 %; Neutrophils # 3.9 K/mcL (1.6-8.9); Platelet Count 116 K/mcL (140-400); Red Blood Count 3.36 M/mcL (4.19-5.50); Red Cell Distribution Width 12.6 % (11.5-14.5); Segmented Neutrophils % 55.1 %; White Blood Count 7.1 K/mcL (4.3-11.1)
[2021-07-07 06:16] LABS: Alanine Aminotransferase 14 Units/L (7-52); Albumin/Globulin Ratio 1.3 (1.1-2.2); Alkaline Phosphatase 117 Units/L (34-104); Aspartate Amino Transferase 13 Units/L (13-39); BUN/Creatinine Ratio 22 (6-26); Bilirubin,Direct 0.1 mg/dL (0.0-0.2); Bilirubin,Indirect 0.2 mg/dL (0.0-1.0); Bilirubin,Total 0.3 mg/dL (0.3-1.0); Blood Urea Nitrogen 14 mg/dL (6-20); Calcium 8.4 mg/dL (8.6-10.3); Carbon Dioxide 24 mEq/L (23-29); Chloride 102 mEq/L (98-107); Globulin 2.3 g/dL (2.4-3.5); Glucose 252 mg/dL (70-105); Osmolality,Calculated 283 (280-300); Sodium 132 mEq/L (136-145); Total Protein 5.3 g/dL (6.4-8.9); eGFR For African Americans > 60 (> 60); eGFR For Non-African Americans > 60 (> 60)
[2021-07-07] MEDS ORDERED: Ketorolac 30 MG/ML VIAL IVP ONE (08:08)
[2021-07-07] MEDS ORDERED: *HR* LORazepam 2 MG/ML VIAL IVP ONE (08:09)
[2021-07-07] MEDS: Insulin LISPRO 300 UNITS/3 ML VIAL SUBQ SCH ×2 (08:11→13:48)
[2021-07-07] MEDS: Insulin DETEMIR 100 UNIT/ML X5UNITS SUBQ SCH (08:12)
[2021-07-07 11:22] VITALS: BP 118/77; PULSE 81; TEMP 98.1; O2SAT 98
== END 2021-07-07 17:55 | disposition home or self-care (01) | DRG 720 ==
LOC: EMEROOARM 13:56 → SUATTDRO 18:07 → ICNU 18:07 → 2NENU 07-05 10:41
PROVIDERS: ADMIT Pediatrics; ATTEND Family Medicine